=== PATIENT | female | born 1955 | race Caucasian/White ===

== ENCOUNTER 2018-10-15 08:37 | Day surgery (SDC) | payer MEDICARE ==
[2018-10-15] MEDS ORDERED: PROPOFOL 10 MG/ML VIAL IV ONE (08:38)
[2018-10-15] MEDS ORDERED: LIDOCAINE 2% MDV (20MG/ML) 20ML VIAL IV ONE (08:38)
--- NOTE | 2018-10-16 10:30 | Operative Note ---
DATE OF SURGERY: 10/15/2018 OPERATION: Screening COLONOSCOPY, initial exam. PREOPERATIVE DIAGNOSIS: Colon cancer screening, average risk. POSTOPERATIVE DIAGNOSIS: Mild sigmoid diverticulosis. ESTIMATED BLOOD LOSS: None. SPECIMENS: None. PREPARATION QUALITY: Good. PROCEDURE: After informed consent was obtained from the patient, she was placed in the left lateral decubitus position in the endoscopy suite, sedated and monitored by the department of anesthesia. Digital rectal examination was unremarkable. A well-lubricated [id number] colonoscope was inserted into the rectum and advanced to the cecum. The cecum, cecal bulb, ileocecal valve, appendiceal orifice, ascending colon, transverse colon, and descending colon were free of inflammatory changes, mass lesions, or polyps. There were mild sigmoid diverticular changes noted. No inflammation or polyps were seen. The rectum was unremarkable in forward and in J-turn views. The endoscope was straightened, the rectal ampulla deflated, and the endoscope was removed. RECOMMENDATIONS: The patient should follow a high-fiber diet. I recommend a repeat exam in 10 years or sooner should symptoms or history warrant. As always, thank you for allowing me to participate in the healthcare of your patients. CC: IHSAN Sandra
== END 2018-10-15 10:12 | disposition home or self-care (01) ==
LOC: HOP 08:37
PROVIDERS: ATTEND Internal Medicine Gastroenterology
DX: Z12.11 Encounter for screening for malignant neoplasm of colon (principal); K57.30 Diverticulosis of large intestine without perforation or abscess without bleeding; I10 Essential (primary) hypertension
CPT/HCPCS: 00812; G0121